=== PATIENT | female | born 1995 ===

== ENCOUNTER 2017-01-28 04:24 | Inpatient (IN) | payer OTHER ==
[~2017-01-28] VITALS: Ht 160 cm; Wt 87.1 kg
[2017-01-28 04:31] VITALS: BP 135/63
[2017-01-28 04:50] LABS: ABSOLUTE BASOPHIL COUNT 0 /CUMM (0.0-0.2); ABSOLUTE EOSINOPHIL COUNT 0 /CUMM (0.0-0.7); ABSOLUTE LYMPH COUNT 1.3 /CUMM (1.2-3.4); ABSOLUTE MONOCYTE COUNT 0.6 /CUMM (0.10-0.60); BASOPHIL % 0.3 % (0.0-2.0); EOSINOPHIL % 0 % (0-5); GRANULOCYTE % 86.7 % (42.2-75.2); HEMATOCRIT 36.2 % (37-47); MEAN CORPUSCULAR HGB CONC 31.7 G/DL (33.0-37.0); MEAN CORPUSCULAR VOLUME 85.1 FL (81.0-99.0); MEAN PLATELET VOLUME 10.1 FL (7.4-10.4); PLATELET COUNT 235 /CUMM (130-400); RBC DISTRIBUTION WIDTH 14.3 % (11.5-14.5); RED BLOOD CELL CT 4.26 /CUMM (4.20-5.40); WHITE BLOOD CELL COUNT 14.9 /CUMM (4.8-10.8)
--- NOTE | 2017-01-28 05:45 | History & Physical ---
General Information and HPI MD Statement: I have seen and personally examined LATRICE BRENNER and documented this H&P. The patient is a 21 year old female at [40] weeks and [6] days gestation who presented with a chief complaint of [LABOR]. Source of Information: patient Exam Limitations: no limitations History of Present Illness: 21yo, 40 6/7wks, c/o ctxs overnight, getting stronger for last 2 hours, came in for evaluation, exma by RN, she was found to be fully dilated. care started at 8 wks ( with [facility]), uncomplicated thus far. GBS negative Allergies/Medications Allergies: Coded Allergies: amoxicillin (Intermediate, HIVES 01/28/17) Compliance With Home Meds: GOOD Past History investigator welfare History : 1 Para: 0 Last Menstrual Period: unknown Estimated Delivery Date: 01/22/2017 Past investigator welfare History: none Medical History Blood Transfusion Hx: No Neurological: NONE EENT: NONE Cardiovascular: NONE Respiratory: NONE Gastrointestinal: NONE Hepatic: NONE Renal: NONE Musculoskeletal: NONE Psychiatric: NONE Endocrine: NONE Blood Disorders: NONE Cancer(s): NONE COAGULATOR/Reproductive: NONE Surgical History Pertinent Surgical History: none Past Family/Social History Psychosocial History Where do you live? Home Primary Language: Urdu Smoking Status: Never Smoked Review of Systems Review of Systems Constitutional: Reports: no symptoms. EENTM: Reports: no symptoms. Cardiovascular: Reports: no symptoms. Respiratory: Reports: no symptoms. GI: Reports: no symptoms. Genitourinary: Reports: see HPI. Musculoskeletal: Reports: no symptoms. Skin: Reports: no symptoms. Neurological/Psychological: Reports: no symptoms. Hematologic/Endocrine: Reports: no symptoms. Immunologic/Allergic: Reports: no symptoms. All Other Systems: Reviewed and Negative Post Menopausal: No Exam & Diagnostic Data Last 24 Hrs of Vital Signs/I&O 35 Vital Signs Date Time Temp Pulse Resp B/P Pulse O2 O2 Flow FiO2 Ox Delivery Rate 01/28 0431 135/63 Intake & Output 01/28 0800 01/28 0000 01/27 1600 Intake Total Output Total Balance Patient 87.09 kg Weight Obstetric Exam Wgt Gained During : 35lbs Pelvimetry: adequate Dilation (cm): 10 Effacement (%): 100 Station: 3 Membranes: AROM Fluid: light meconium Fundal Height (cm): 39 Multiple Gestation? No Contractions: q2-3 min Infant #1 - FHR Baseline: 130 Category: 1 Estimated Weight: 3200g Presentation: vertex Patient for Induction? No Physical Exam: VSS abdomen: gravid, soft, nontender. ext: DCT (-) Labs Blood Type & Rh: B positive Antibody Screen: negative Hct/Hgb & Platelets #1: 11.1/34.5%. PLT [id number] Hct/Hgb & Platelets #2: 10.6/32.7%,[id number] Rubella: immune VDRL #1: negative VDRL #2: negative HbsAg: negative HIV #1: negative HIV #2 negative 1 Hr P Group B Strep: negative Initial Ultrasound: IUP at 8wks Anatomy Ultrasound: normal Genetic Testing: declined Last 24 Hrs of Labs/Harry: Laboratory Tests 01/28/17 0430: CBC w Diff MAN DIFF ORDERED, RBC 4.26, MCV 85.1, MCH 27.0, RDW 14.3, MPV 10.1, Gran % 86.7 H, Lymphocytes % 8.8 L, Monocytes % 4.2, Eosinophils % 0, Basophils % 0.3, Absolute Granulocytes 13.0 H, Segmented Neutrophils 77 H, Absolute Lymphocytes 1.3, Lymphocytes 16 L, Monocytes 7, Absolute Monocytes 0.6 , Absolute Eosinophils 0, Absolute Basophils 0, Platelet Estimate ADEQUATE, Polychromasia 1+, Hypochromic-Microcytic 1+, Poikilocytosis 1+, Ovalocytes 1+, Stomatocytes FEW, PUBS MCHC 31.7 L, Fld Total RBCs Counted 100 Assessment/Plan Assessment/Plan: 21yo, 40 6/7wks, labor 1. admit pt, admission labs 2. monityor closely, anticipate As Ranked By This Provider Problem List: 1. Core Measures/Miscellaneous Venous Thromboembolism VTE Risk Factors: / VTE Contraindications: No Contraindications VTE Diagnosis: No Beta Roberto Is Beta Roberto a Home Med? No Antibiotics Is Patient on Antibiotics? No Attending MD Review Statement Attending Statement Attending MD Statement: examined this patient, discussed w/nursing
--- NOTE | 2017-01-28 05:47 | Labor & Delivery Summary ---
Delivery Summary Vaginal Delivery: Vaginal: vertex Episiotomy/Lacerations: Episiotomy/Lacerations: superfical vaginal, right labial Type: superficial vaginal , right labial Repair: 3-0 vicryl Anesthesia: local Placenta: Placenta: spontanteous, normal, 3 vessel, nuchal cord (x_) (x1) Anesthesia: local Baby's Weight: 7lbs2 oz Apgars - 1 Min: 9 Apgars - 5 Min: 9 Additional Comments: Patient presented to labor and delivery in active labor, cervix fully dilated, with bulging membranes. AROM, light meconium-stained fluid, patient pushed well , spontaneous delivered of a male infant at cephalic presentation, AMY position, nuchal cord 1, easily reduced, head delivered atraumatically, followed by shoulders and rest of the body without difficulties, vigorous and crying, placed on mother's chest, nose and mouth suctioned with suction bulb, cord clamped and cut. Placenta delivered spontaneously, intact, three-vessel cord. Small vaginal and right labial superficial laceration noted, 4 mL 1% lidocaine for local anesthesia, laceration repaired with 3-0 Vicryl. EBL 300 mL. Patient tolerated the procedure well, instruments, needles and laps counts were correct. Patient was recovering in recovery room in stable condition.
[2017-01-29 08:48] LABS: ABSOLUTE BASOPHIL COUNT 0 /CUMM (0.0-0.2); ABSOLUTE EOSINOPHIL COUNT 0.1 /CUMM (0.0-0.7); ABSOLUTE GRANULOCYTE CT 6.9 /CUMM (1.4-6.5); ABSOLUTE LYMPH COUNT 2.3 /CUMM (1.2-3.4); ABSOLUTE MONOCYTE COUNT 1.1 /CUMM (0.10-0.60); BASOPHIL % 0.3 % (0.0-2.0); EOSINOPHIL % 0.7 % (0-5); GRANULOCYTE % 66.5 % (42.2-75.2); HEMATOCRIT 31.6 % (37-47); MEAN CORPUSCULAR HGB 27.4 PG (27.0-31.0); MEAN CORPUSCULAR HGB CONC 32.1 G/DL (33.0-37.0); MEAN CORPUSCULAR VOLUME 85.4 FL (81.0-99.0); MEAN PLATELET VOLUME 9.9 FL (7.4-10.4); PLATELET COUNT 194 /CUMM (130-400); WHITE BLOOD CELL COUNT 10.4 /CUMM (4.8-10.8)
--- NOTE | 2017-01-29 09:50 | PN- OBGYN ---
Surgical Brief Attending Note Brief Attending Note: PPD#1 pt is resting in bed, no complaints. tolerate diet, void without difficulties. ambulating well PE: VSS CV RRR lungs CTA B/L Abdomen: soft, nontender, uterus firm, fundus below umbilicus. lochia mild Ext: DCT (-) A/P: 21 yo, s/p , PPD #1 1. encourage ambulation, encourage 2. RT PP care, pt desires to come to our office for PP care, will given information upon discharge. 3. pt declined circumcision for the baby today
[2017-01-30] MEDS ORDERED: IBUPROFEN800 M1 PO (10:04)
--- NOTE | 2017-01-30 11:56 | PN- Post Delivery/GYN ---
Subjective Subjective: READY FOR DISCHARGE HOME Review of Systems: NEG FOR CARDIAC GI PULMONARY COMPLAINTS Objective Last 24 Hrs of Vital Signs/I&O Afebrile VSS Physical Exam General Appearance Alert, Oriented X3, Cooperative, No Acute Distress Skin No Significant Lesion Cardiovascular Regular Rate Lungs Normal Air Movement Abdomen Normal Bowel Sounds, Soft, No Tenderness, No Hepatospenomegaly, fundus firm 2 fb below umbilicus nontender Neurological Normal Gait, Normal Speech Extremities No Tenderness/Swelling Reproductive (FEMALE) Normal female genitalia, avge lochia Current Medications: Current Medications Sig/Catherine Start time Last Medication Dose Route Stop Time Status Admin Acetaminophen 650 MG Q4P PRN 01/28 0515 AC PO Docusate Sodium 100 MG BID PRN 01/28 0515 AC 01/28 PO 1742 Ibuprofen 800 MG .STK-MED ONE 01/29 210 DC PO 01/29 2108 Ibuprofen 800 MG Q6P PRN 01/28 0515 AC 01/29 PO 0700 Oxycodone/ 1 TAB Q3P PRN 01/28 0515 AC Acetaminophen PO Assessment/Plan Assessment/Plan Stable PPD#2 discharge home social service consult - recent move- limited contact with her family Problem List: 1. 2. Term of male Attending MD Review Statement Attending Statement Attending MD Statement: examined this patient, discussed with family, reviewed EMR data (avail), discussed with nursing Attending Assessment/Plan: Ary Mercado MD
== END 2017-01-30 14:37 | DRG 560 ==
LOC: GNO 04:24
PROVIDERS: ADMIT Obstetrics & Gynecology
PROC: 0UQMXZZ Repair Vulva, External Approach (ICD-10-PCS; principal; 2017-01-28)
PROC: 10E0XZZ Delivery of Products of Conception, External Approach (ICD-10-PCS; principal; 2017-01-28)
DX: O69.81X0 Labor and delivery complicated by cord around neck, without compression, not applicable or unspecified (principal); O70.0 First degree perineal laceration during delivery; Z3A.40 40 weeks gestation of pregnancy; Z37.0 Single live birth
CPT/HCPCS: GNOS; 80307; 81001; 88307; G0463; J7120